=== PATIENT | male | born 1950 | race Two or more races ===

== ENCOUNTER → 2016-11-02 | Day surgery (SDC) | payer MEDICARE, OTHER ==
--- NOTE | 2016-11-01 21:28 | Pre-op HX & Phy Repo 2 SIG ---
DATE OF ADMISSION: 11/02/2016 PREOPERATIVE DIAGNOSIS: Proliferative retinopathy with vitreous hemorrhage, left eye. BRIEF NOTE: This is the first [facility] admission for Mr. Jovanni Coelho, who is a 65-year-old gentleman, who complained of poor vision for several years. The patient underwent prior laser treatment in both eyes and prior cataract surgery but has severe proliferative retinopathy in both eyes and loss of vision in the right. He was noted to have bilateral vitreous hemorrhaging. PAST MEDICAL HISTORY: Remarkable for diabetes and hypertension, which have been present since at least 2004. He is currently on lisinopril and metformin. His cataract surgery was done in 2009. PHYSICAL EXAMINATION: Best vision at the time of visit was questionable light perception in the right eye and counting fingers in the left with pressures of 21. 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 There was some degree of iris atrophy in either eye with posterior chamber lens was in good position. Funduscopic examination of the right eye showed moderate nerve pallor with a cup of at least 0.6. There was diabetic macular edema, extensive peripheral laser, and moderate vitreous hemorrhage. The left fundus showed mild nerve pallor with a cup of 0.6. There was diabetic macular edema, proliferative retinopathy and moderate to dense vitreous hemorrhage. General physical examination will be performed by Dr. Garcia. ASSESSMENT: Severe proliferative diabetic retinopathy with vitreous hemorrhage, left eye. PLAN: The plan is to perform a pars plana vitrectomy, membrane dissection, endolaser, and Avastin injection on the left eye. The risks and benefits of surgery were gone over with the patient including potential infection, hemorrhage, glaucoma, and remote possibility of loss of the eye. The risk of anesthesia was discussed. The patient understands and consents to surgery, which will be performed on tomorrow morning. Malik Pozo M.D. DR: BEN JOB#: [id number] CC:
[~2016-11-02] VITALS: Ht 172.7 cm; Wt 97.1 kg
[2016-11-02] VITALS (11 sets, daily range): BP systolic 111–132; BP diastolic 71–89
[~2016-11-02] MED LIST: ATENOLOL50 MG ORAL; Avastin 10mg Inj IVITRE ONE; BSS 15ml BTL ONE; BSS 500ml btl ONE; Bupivacaine 0.75% 30ml vial INJ ONE; Cyclopentolate 1% Opth Sol ONE; Dexamethasone 4mg/ml vial ONE; DiphenhydrAMINE 50mg/ml Inj IVP PRN; DiphenhydrAMINE 50mg/ml Inj ONE; EPINEPHrine 1mg/1ml Amp ONE; Flurbiprofen 0.03% Opth Sol 2.5ml ONE; Gatifloxacin Opth Solution 0.5% ONE; Kenalog-10 5ml Inj ONE; LR 1000ml 1,000 ML IVLG SCH; LR 1000ml ONE; Labetalol 5mg/ml 20ml vial IV PRN; Lidocaine 1% MPF 10mg/ml 5ml ONE; Lidocaine 2% MPF 5ml Vial INJ ONE; METFORMIN HCL500 M1 ORAL; Maxitrol Opth Oint 3.5gm ONE; NS Irrig 1000ml ONE; Norco 5mg/325mg tab ORAL PRN; Phenylephrine 2.5% Op Soln ONE; Povidone-Iodine 5% opth solution ONE; Pred Forte 1% Opth Susp 1ml LEFT EYE ONE; Propofol 10mg/ml 20ml IV ONE; Sodium Hyaluronate 10 mg/ml 0.85ml ONE; Sterile Water Irrig 1000ml IRRIG ONE; TAMSULOSIN HCL0.4 MG ORAL; Tetracaine 0.5% Opth Soln ONE; ZETIA10 MG ORAL; fentaNYL 100 mcg/2 mL IV ONE
--- NOTE | 2016-11-02 06:06 | Pre-Procedure Note/Attestation ---
Pre-Procedure Note/Attestation Complete Prior to Procedure Planned Procedure: left Procedure Narrative: PPV, membrane peel, endolaser, Avastin injection L eye Indications for Procedure Pre-Operative Diagnosis: Vitreous heme with traction L eye Attestation I attest that I discussed the nature of the procedure; its benefits; risks and complications; and alternatives (and the risks and benefits of such alternatives ), prior to the procedure, with the patient (or the patient's legal insurance service representative). I attest that, if there was a reasonable possibility of needing a blood transfusion, the patient (or the patient's legal insurance service representative) was given the [facility] standardized written summary, pursuant to the [place] Th[place] Blood Safety Act ([place] Health and Safety Code # 1645, as amended). I attest that I re-evaluated the patient just prior to the surgery and that there has been no change in the patient's H&P, except as documented below: SHAUN MORIN Nov 02, 2016 06:06
[2016-11-02 06:59] LABS: BASOPHILS % (AUTO) 1.5 % (0.0-2.0); EOSINOPHILS % (AUTO) 4.3 % (0.0-3.0); MEAN CORPUSCULAR HEMOGLOBIN 30.9 PG (27.0-31.0); MEAN CORPUSCULAR HGB CONC 33.5 G/DL (32.0-36.0); MEAN CORPUSCULAR VOLUME 92 FL (80-99); MEAN PLATELET VOLUME 7.5 FL (6.5-10.1); MONOCYTES % (AUTO) 10.7 % (1.0-10.0); NEUTROPHILS % (AUTO) 47.5 % (45.0-75.0); PLATELET COUNT 150 K/UL (150-450); RED BLOOD COUNT 4.59 M/UL (4.70-6.10); RED CELL DISTRIBUTION WIDTH 12.5 % (11.6-14.8); WHITE BLOOD COUNT 6.4 K/UL (4.8-10.8)
[2016-11-02] MEDS: Flurbiprofen 0.03% Opth Sol 2.5ml LEFT EYE SCH ×3 (07:14→07:48)
[2016-11-02] MEDS: Gatifloxacin Opth Solution 0.5% LEFT EYE SCH ×3 (07:14→07:48)
[2016-11-02] MEDS: Phenylephrine 2.5% Op Soln LEFT EYE SCH ×3 (07:14→07:49)
[2016-11-02] MEDS: Cyclopentolate 1% Opth Sol LEFT EYE SCH ×3 (07:14→07:49)
[2016-11-02 07:15] LABS: ANION GAP 15 (5-15); CALCIUM 9.5 mg/dL (8.6-10.2); CARBON DIOXIDE 24 mEQ/L (20-30); CHLORIDE 101 mEQ/L (98-107); GLOMERULAR FILTRATION RATE > 60 mL/min (>60); HEMOLYSIS 62; POTASSIUM 4.5 mEQ/L (3.4-4.9); SODIUM 140 mEQ/L (135-145)
--- NOTE | 2016-11-02 07:48 | Anethesia Preoperative Eval ---
Anesthesia Pre-op PMH/ROS General Date of Evaluation: Nov 02, 2016 Anesthesiologist: Ramo ASA Score: ASA 2 Mallampati Score Class I : Soft palate, uvula, fauces, pillars visible Class II: Soft palate, uvula, fauces visible Class III: Soft palate, base of uvula visible Class IV: Only hard plate visible Mallampati Classification: Class II Surgeon: Sánchez Diagnosis: Left eye vitreous hemorrhage Surgical Procedure: Left eye vitrectomy Anesthesia History: none Family History: no anesthesia problems Allergies: Coded Allergies: No Known Allergies (Unverified , 11/01/16) Medications: see eMAR Past Medical History Cardiovascular: Reports: HTN, other - HLD, Denies: CAD, [place], arrhythmia, valve dz Pulmonary: Denies: COPD, HEIDI, asthma, other Gastrointestinal/Genitourinary: Reports: other - BPH, Denies: CRI, ESRD, GERD Neurologic/Psychiatric: Reports: dementia, depression/anxiety, Denies: CVA, TIA, other Endocrine: Reports: DM, Denies: hypothyroidism, other, steroids HEENT: Denies: [place] (L), [place] (R), cataract (L), cataract (R), glaucoma, other Hematology/Immune: Denies: DVT, anemia, bleeding disorder, other Musculoskeletal/Integumentary: Denies: DDD, DJD, OA, RA, edema, other PSxH Narrative: Left cataract sx Anesthesia Pre-op Phys. Exam Physician Exam Last Vital Signs Date Time Temp Pulse Resp B/P Pulse Ox O2 Delivery O2 Flow Rate FiO2 11/02/16 07:44 97.9 54 18 119/79 96 Room Air Constitutional: NAD Cardiovascular: RRR Respiratory: CTA Airway Exam Mallampati Score: Class II Anesthesia Pre-op A/P Labs Hematology Test 11/02/16 06:15 White Blood Count 6.4 K/UL (4.8-10.8) Red Blood Count 4.59 M/UL (4.70-6.10) L Hemoglobin 14.2 G/DL (14.2-18.0) Hematocrit 42.3 % (42.0-52.0) Mean Corpuscular Volume 92 FL (80-99) Mean Corpuscular Hemoglobin 30.9 PG (27.0-31.0) Mean Corpuscular Hemoglobin Concent 33.5 G/DL (32.0-36.0) Red Cell Distribution Width 12.5 % (11.6-14.8) Platelet Count 150 K/UL (150-450) Mean Platelet Volume 7.5 FL (6.5-10.1) Neutrophils (%) (Auto) 47.5 % (45.0-75.0) Lymphocytes (%) (Auto) 36.0 % (20.0-45.0) Monocytes (%) (Auto) 10.7 % (1.0-10.0) H Eosinophils (%) (Auto) 4.3 % (0.0-3.0) H Basophils (%) (Auto) 1.5 % (0.0-2.0) Chemistry Test 11/02/16 06:15 Sodium Level 140 mEQ/L (135-145) Potassium Level 4.5 mEQ/L (3.4-4.9) Chloride Level 101 mEQ/L (98-107) Carbon Dioxide Level 24 mEQ/L (20-30) Anion Gap 15 (5-15) Blood Urea Nitrogen 24 mg/dL (7-23) H Creatinine 1.0 mg/dL (0.7-1.2) Estimat Glomerular Filtration Rate > 60 mL/min (>60) Glucose Level 126 mg/dL (74-106) H Calcium Level 9.5 mg/dL (8.6-10.2) Studies Pre-op Studies: EKG - sr Risk Assessment & Plan Assessment: ASA II Plan: MAC Status Change Before Surgery: No Pre-Antibiotics Drug: N/A MARICEL PHILIP M.D. Nov 02, 2016 07:48
--- NOTE | 2016-11-02 07:49 | Immediate Post-Op Evaluation ---
Immediate Post-Op Evalulation Immediate Post-Op Evalulation Procedure: Left eye vitrectomy Date of Evaluation: Nov 02, 2016 Time of Evaluation: 09:20 IV Fluids: 300 Blood Products: 0 Estimated Blood Loss: 0 Urinary Output: 0 Blood Pressure Systolic: 126 Blood Pressure Diastolic: 82 Pulse Rate: 52 Respiratory Rate: 16 O2 Sat by Pulse Oximetry: 98 Temperature (Fahrenheit): 97.4 Pain Score (1-10): 0 Nausea: No Vomiting: No Complications 0 Patient Status: awake, reacts, patent, none Hydration Status: adequate Drug: N/A MARICEL PHILIP M.D. Nov 02, 2016 07:49
--- NOTE | 2016-11-02 07:50 | 48 Hour Post Anesthesia Eval ---
Post Anesthesia Evaluation Procedure: Left eye vitrectomy Date of Evaluation: Nov 02, 2016 Blood Pressure Systolic: 117 0: 81 Pulse Rate: 52 Respiratory Rate: 16 O2 Sat by Pulse Oximetry: 98 Airway: patent Nausea: No Vomiting: No Pain Intensity: 0 Hydration Status: adequate Cardiopulmonary Status: at [place] Mental Status/LOC: patient returned to baseline Post-Anesthesia Complications: 0 Follow-up care needed: ready to discharge MARICEL PHILIP M.D. Nov 02, 2016 07:50
--- NOTE | 2016-11-02 09:24 | Brief Operative Note ---
Immediate Post Operative Note Operative Note Chief Complaint: Poor vision L eye, clouds Pre-op Diagnosis: Vitreous heme with traction L eye Procedure: PPV, removal of posterior capsular remnants, endolaser, 548 spots, Avastin injection, Kenalog injection L eye Post-op Diagnosis: same as pre-op plus - Posterior capsular remnants not removable with YAG laser Surgeon: Sánchez Anesthesiologist: Wicho Anesthesia: MAC Specimen: none Complications: none Condition: stable Estimated Blood Loss: none Implant(s) used?: No SHAUN MORIN Nov 02, 2016 09:24
--- NOTE | 2016-11-02 14:28 | Pre-op HX & Phy Repo 2 SIG ---
DATE OF ADMISSION: 11/02/2016 PRESURGICAL INTERNAL MEDICINE HISTORY AND PHYSICAL REASON FOR EVALUATION: I was asked by Dr. Malik Pozo to see this 65-year-old male, who is going for elective surgery on the left eye. The patient has proliferative diabetic retinopathy with vitreous hemorrhage, left eye. Please see full ophthalmology History and Physical by Dr. Malik Pozo. The patient was evaluated. Chart was reviewed. Information obtained from the brother at bedside due to the dementia of the patient. PAST MEDICAL HISTORY: Remarkable for hypertension, type 2 diabetes, benign prostatic hypertrophy, hyperlipidemia. No history of stroke or head trauma. Denies history of heart attack. No history of renal failure. No GI abnormality, bleeding, ulcer or heartburn. No history of anemia or thyroid problem. PAST SURGICAL HISTORY: Cataract approximately 10 years ago. MEDICATIONS: Current medications include atenolol, Flomax, metformin, Zetia, and fish oil. ALLERGIES: Not known. SOCIAL HISTORY: The patient smoked till 10 years ago. Denies alcohol or street drug use. FAMILY HISTORY: Mother from cancer and father from heart attack. PHYSICAL EXAMINATION: GENERAL: Alert and confused male in his 60s. VITAL SIGNS: Blood pressure 119/79, temperature 97.2 degrees, pulse 54, and O2 saturation 96% on room air. SKIN: Discolorated skin on the both feet, just above ankle. Skin dry. No rashes or discharge. No varicose veins. LYMPHATICS: Lymph nodes not enlarged. HEENT: Head, normocephalic. Ears, clear. Eyes, full description per Dr. Malik Pozo. Mouth, clear and moist. No dentures. Nose, clear. No discharge. Ears, clear. No impairments. NECK: Supple. No jugular venous distention. No palpable mass. CHEST: No deformity or asymmetry. LUNGS: Clear. No rales or rhonchi. HEART: Sinus rhythm. No murmur. No S3 or S4. Bradycardia. Heart rate is 54. ABDOMEN: Soft and benign. Liver and spleen not enlarged. No rebound. EXTREMITIES: No varicose veins. No calf tenderness. GENITOURINARY TRACT: Dysuria. Urinate almost every hour due to benign prostatic hypertrophy. CVA nontender. NERVOUS SYSTEM: No asymmetry. No tremor. MENTAL: Marked dementia, cause unknown. ____ approximately one year ago. LABORATORY AND DIAGNOSTIC DATA: Electrocardiogram, normal sinus rhythm at 53, bradycardia, first-degree AV block. Fast blood sugar 114 mg/dL. The patient did not eat or drink from last night. IMPRESSION: 1. Proliferative diabetic retinopathy with vitreous hemorrhage, left eye. 2. Hypertension, controlled. 3. Sinus bradycardia with first-degree arteriovenous block on the EKG. 4. Diabetes mellitus type 2, controlled. 5. Benign prostatic hypertrophy, symptomatic. 6. Dementia last one year. 7. Dermatitis, lower extremities. PLAN: Pars plana vitrectomy, 23 G endolaser membrane peel, left eye per Dr. Malik Pozo. CONCLUSION: The patient has dementia. Information obtained through the brother at bedside. The patient has history of hypertension, diabetes, and dementia. The patient's vital signs stable except for bradycardia most likely related to atenolol, beta-brian. The patient is asymptomatic. He did not eat or drink from last night. The patient's condition optimized for surgery. Thank you very much, Dr. Pozo, for privilege to participate in the care of this interesting patient. Pj Garcia M.D. DR: Jimmy JOB#: [id number] CC:
--- NOTE | 2016-11-02 15:58 | Operative Note - Dictated ---
DATE OF OPERATION: 11/02/2016 PREOPERATIVE DIAGNOSIS: Vitreous hemorrhage with active proliferative diabetic retinopathy and hazy posterior capsular remnants, left eye. POSTOPERATIVE DIAGNOSIS: Vitreous hemorrhage with active proliferative diabetic retinopathy and hazy posterior capsular remnants, left eye. PROCEDURES: 1. Pars plana vitrectomy. 2. Lysis and removal of opacified posterior capsular remnants. 3. Endolaser. 4. Avastin injection. 5. Kenalog injection, left eye. SURGEON: Malik Pozo M.D. [employer] FLOORPERSON: None. ANESTHESIA: Local with sedation. ANESTHESIOLOGIST: Dr. Vickie Sands. JUSTIFICATION FOR SURGERY: This 65-year-old gentleman with longstanding diabetes and prior cataract surgery complained of poor vision and was found to have a significantly hazy posterior capsule, only partially opened with prior laser treatment. In addition, there were is a resolving vitreous hemorrhage and active proliferative diabetic retinopathy. BRIEF NOTE: The patient brought to the operative room, placed on OR table in supine position. After a time-out was performed and agreed upon by the staff and initial monitoring secured by Dr. Sands, he was prepped and draped in the normal manner. A lid speculum inserted into the left eye. Using a 23-gauge trocar system cannulas were placed in all except infranasal quadrant. Infusion secured inferotemporally. Vitrectomy was begun posterior to the lens. Very dense capsular remnants that had only been partially opened by previous YAG capsulotomy were removed leaving a clear posterior opening behind the lens implant. There were extensive pits in the lens itself, but the obscuration of the view was only limited. The vitrectomy was then carried further posteriorly in a central core fashion and peripherally leaving a small vitreous skirt. There is extensive posterior laser or pigmentation. No significant traction was seen after removal of vitreous in blood that would benefit the patient's acuity, so no direct peeling was done. Scleral depression was done. No peripheral breaks, tears, or detachments were seen, but there were several areas of very light laser treatment. The endolaser was brought to the eye and a power of 0.3 [place] and duration of 0.2 seconds, a total of 540 lesions were applied. No problems were encountered. Kenalog 1 mg was used to help visualize the vitreous. The superior cannulas were removed and through the infusion cannula Avastin 1.25 mg was injected. The eye was reinflated and this cannula was removed. After massage all wounds were noted to be self-sealing. Subconjunctival Decadron and gentamicin were then injected and Maxitrol and atropine ointments were instilled. The eye was patched and shielded and the patient taken to recovery in excellent condition. No complications. Malik Pozo M.D. DR: ANÍBAL JOB#: [id number] CC: Malik Pozo M.D.
--- NOTE | 2016-11-06 18:22 | Cardiology Report ---
APPROVED REPORT EKG Measurement Heart [id number] Sinus bradycardia with 1st degree AV block Otherwise normal ECG
== END | disposition home or self-care (01) ==
LOC: SUR 05:44
DX: H43.12 Vitreous hemorrhage, left eye (principal); E11.3512 Type 2 diabetes mellitus with proliferative diabetic retinopathy with macular edema, left eye; Z79.84 Long term (current) use of oral hypoglycemic drugs; I10 Essential (primary) hypertension; N40.0 Benign prostatic hyperplasia without lower urinary tract symptoms; E78.5 Hyperlipidemia, unspecified; F32.9 Major depressive disorder, single episode, unspecified; F41.9 Anxiety disorder, unspecified; R00.1 Bradycardia, unspecified; I44.0 Atrioventricular block, first degree; F03.90 Unspecified dementia, unspecified severity, without behavioral disturbance, psychotic disturbance, mood disturbance, and anxiety; L30.9 Dermatitis, unspecified; Z87.891 Personal history of nicotine dependence
CPT/HCPCS: 36415; 67039; 80048; 82962; 85025; 93005; J0171; J1100; J2704; J3010; J3301; J3470; J3490; J7120; 94003; 94150; J9035